=== PATIENT | female | born 1990 | race Two or more races ===

== ENCOUNTER 2020-09-11 01:03 | Emergency (ER) | payer SELFPAY ==
[~2020-09-11] VITALS: Ht 160 cm; Wt 54.4 kg
--- NOTE | 2020-09-11 01:05 | NUR ---
PT HERNANDEZRA FOUND ON THE STREET NAKED AND NOT TALKING. PT UNWILLING TO ANSWER QUESTIONS. 20 LEFT AC INITIATED, BLOOD OBTAINED AND SENT TO THE LAB. PT SPOKE ONCE AND STATED " IM HEARING VOICES THAT KEEP SAYING THAT IM GOING TO BURN IN HELL." PT SKIN WARM, DRY, AND INTACT. PT ATTACHED TO MONITOR AND POX. PT GIVEN BLANKET AND CALL LIGHT WITHIN REACH. WILL CONTINUE TO MONITOR.
--- NOTE | 2020-09-11 01:33 | NUR ---
ACCU CHECK 119
[2020-09-11 01:35] LABS: BASOPHILS # (AUTO) 0.1 /CMM (0.0-0.2); BASOPHILS % (AUTO) 0.7 % (0.0-2.0); EOSINOPHILS % (AUTO) 0.1 % (0.0-6.0); HEMATOCRIT 40 % (33-45); HEMOGLOBIN 13.6 g/dL (11.5-14.8); LYMPHOCYTES # (AUTO) 1.6 /CMM (0.8-4.8); LYMPHOCYTES % (AUTO) 16.5 % (20.0-44.0); MEAN CORPUSCULAR HGB CONC 34 g/dl (31.0-36.0); MEAN CORPUSCULAR VOLUME 89 fL (82-100); MONOCYTES # (AUTO) 0.7 /CMM (0.1-1.30); MONOCYTES % (AUTO) 6.9 % (2.0-12.0); NEUTROPHILS # (AUTO) 7.3 /CMM (1.8-8.9); NEUTROPHILS % (AUTO) 75.8 % (43.0-81.0); PLATELET COUNT (AUTO) 291 /CMM (150-450); WHITE BLOOD COUNT (AUTO) 9.7 K/uL (4.3-11.0)
[2020-09-11 01:48] LABS: CARBON DIOXIDE 23 mmol/L (21-32); CHLORIDE 102 mmol/L (98-107); CREATININE 0.7 mg/dL (0.6-1.3); GLUCOSE 112 mg/dL (74-106); POTASSIUM 3.2 mmol/L (3.5-5.1); SODIUM SERUM 140 mmol/L (136-145); UREA NITROGEN, BLOOD 8 mg/dL (7-18)
[2020-09-11 01:53] LABS: BILIRUBIN,DIRECT 0.1 mg/dL (0.0-0.2); BILIRUBIN,TOTAL 0.2 mg/dL (0.2-1.0)
[2020-09-11 01:54] LABS: ALANINE AMINOTRANSFERASE 16 U/L (12-78); ALBUMIN 3.8 g/dL (3.4-5.0); ALCOHOL, BLOOD < 3 mg/dL (0-0); ALKALINE PHOSPHATASE 51 U/L (46-116); ASPARTATE AMINOTRANSFERASE 10 U/L (15-37); TOTAL PROTEIN, SERUM 7.6 g/dL (6.4-8.2)
[2020-09-11 01:56] LABS: ACETAMINOPHEN < 2 ug/ml (10-30)
--- NOTE | 2020-09-11 02:33 | NUR ---
URINE OBTAINED AND SENT TO LAB
[2020-09-11 02:55] LABS: BILIRUBIN,URINE NEGATIVE (NEGATIVE); LEUKOCYTE ESTERASE ,URINE NEGATIVE (NEGATIVE); NITRITE, URINE NEGATIVE (NEGATIVE); PROTEIN,URINE NEGATIVE (NEGATIVE); UGLUCOSE NEGATIVE (NEGATIVE); UROBILINOGEN,URINE 0.2 EU/dL (0.2)
[2020-09-11 02:56] LABS: COLOR,URINE STRAW (YELLOW)
--- NOTE | 2020-09-11 03:30 | NUR ---
pt resting comfortably with eyes closed. sitter still at bedside.
[2020-09-11 05:00] VITALS: BP 118/89
[2020-09-11] MEDS ORDERED: IV NS 0.9% 1,000 ML BAG IV ONE (05:00)
--- NOTE | 2020-09-11 05:11 | NUR ---
pt resting with eyes closed. easily arousable
--- NOTE | 2020-09-11 05:30 | NUR ---
Called crisis clinican for evaluation. ETA 1 hr
--- NOTE | 2020-09-11 05:35 | NUR ---
pt pulled out iv line. aware.
--- NOTE | 2020-09-11 05:59 | NUR ---
SPOKE WITH [phone] AND INFORMED PT ELOPED FROM FACILITY. AWARE
--- NOTE | 2020-09-11 05:59 | NUR ---
pt eloped from facility in [facility].Unsucessful attempt to stop patient by sitter, staff, and hospital security. MD aware. Will call [employer].
== END 2020-09-11 06:00 | disposition left against medical advice (07) ==
LOC: ER 01:07 → EDBD 01:07 → ER 06:00
DX: R46.1 Bizarre personal appearance (principal); R44.3 Hallucinations, unspecified; R94.31 Abnormal electrocardiogram [ECG] [EKG]
CPT/HCPCS: 36415; 80048; 80076; 80299; 80307; 80320; 81003; 84703; 85025; 93005; 96360; 99285; J7030; G0480